=== PATIENT | female | born 1990 | race Caucasian/White ===

== ENCOUNTER 2017-03-26 16:56 | Emergency (ER) | payer BC, SELFPAY | END 2017-03-26 17:36 | disposition home or self-care (01) | LOC: BURERS 16:56 | DX: J06.9 Acute upper respiratory infection, unspecified (principal); F17.210 Nicotine dependence, cigarettes, uncomplicated | CPT/HCPCS: 99283 ==

== ENCOUNTER 2017-04-06 21:45 | Emergency (ER) | payer SELFPAY | END 2017-04-06 22:13 | disposition home or self-care (01) | LOC: BURERS 21:45 | DX: S93.401A Sprain of unspecified ligament of right ankle, initial encounter (principal); F17.210 Nicotine dependence, cigarettes, uncomplicated; X50.1XXA Overexertion from prolonged static or awkward postures, initial encounter | CPT/HCPCS: 99283 ==